=== PATIENT | female | born 1940 | race African-American/Black ===

== ENCOUNTER → 2021-04-09 | Outpatient (CLI) | payer BC ==
[2021-04-09 16:10] LABS: ALBUMIN 2.8 g/dL (3.4-5.0); CALCIUM 8.5 mg/dL (8.5-10.1); CREATININE 1.6 mg/dL (0.6-1.0); GFR 37.3; PHOSPHORUS 3.6 mg/dL (2.6-4.7); POTASSIUM 4.1 mmol/L (3.5-5.1)
[2021-04-10 05:17] LABS: CALCIUM PTH 8.8 mg/dL (8.7-10.3); CREATININE PTH 1.53 mg/dL (0.57-1.00); PHOSPHORUS PTH 3.5 mg/dL (3.0-4.3); PTH INTACT 147 pg/mL (15-65)
[2021-04-13 11:04] LABS: KAPPA FREE 50.3 mg/L (3.3-19.4); KAPPA LAMBDA RATIO 1.15 (0.26-1.65); LAMBDA FREE 43.6 mg/L (5.7-26.3)
[2021-04-13 17:36] LABS: ALBUM 2.7 g/dL (2.9-4.4); ALPHA 1 0.2 g/dL (0.0-0.4); ALPHA 2 0.8 g/dL (0.4-1.0); BETA 1.1 g/dL (0.7-1.3); GAMMA 0.7 g/dL (0.4-1.8); PROTEIN TOTAL 5.5 g/dL (6.0-8.5)
== END ==
LOC: LAB 15:40
PROVIDERS: ATTEND Internal Medicine Nephrology
DX: N18.32 Chronic kidney disease, stage 3b (principal)
CPT/HCPCS: 36415; 80069; 82306; 83520; 83970; 84165